=== PATIENT | female | born 1985 ===

== ENCOUNTER 2017-08-01 13:02 | Emergency (ER) | payer OTHER ==
[2017-08-01 13:08] VITALS: PULSE 77; TEMP 99.4
[2017-08-01 13:16] VITALS: RESP 18; O2SAT 98
--- NOTE | 2017-08-01 13:20 | ED PDOC ---
Arrival/HPI - General Chief Complaint: Eye Problem Time Seen by Provider: 08/01/17 13:08 Historian: Patient - History of Present Illness Narrative History of Present Illness (Text): 08/01/17 13:28 32 y/o female, no significant pmh, nkda, c/o lt. eye swelling and painful lump started this morning with no fall or trauma. Pt. has no headache, no nausea or vomiting, no dizziness, no rash, no palpitation, no rash, no change in vision, no painful movement of the left eye, no other medical or psychological complaints. Past Medical History - Provider Review Nursing Documentation Reviewed: Yes - Psychiatric Hx Psychophysiologic Disorder: No Hx Substance Use: No Family/Social History - Physician Review Nursing Documentation Reviewed: Yes Family/Social History: Unknown Family HX Smoking Status: Smoker Currrent Status Unknown Hx Alcohol Use: Yes Frequency of alcohol use: Socially Hx Substance Use: No Allergies/Home Meds Allergies/Adverse Reactions: Allergies aspirin Allergy (Verified 08/01/17 13:03) SWELLING Review of Systems - Review of Systems Constitutional: absent: Fatigue, Fevers Eyes: Other (lt. eye lid swelling). absent: Vision Changes ENT: absent: Hearing Changes Respiratory: absent: SOB, Cough Cardiovascular: absent: Chest Pain Gastrointestinal: absent: Abdominal Pain, Nausea, Vomiting Skin: Rash. absent: Pruritis, Skin Lesions, Laceration, Abscess, Ulcer, Cellulitis Neurological: absent: Headache, Dizziness, Focal Weakness Psychiatric: absent: Anxiety, Depression Physical Exam Vital Signs Reviewed: Yes Vital Signs Temp Pulse Resp BP Pulse Ox 08/01/17 13:16 99.4 F 77 18 165/104 H 98 08/01/17 13:04 99.4 F 77 80 H 165/104 H 97 Temperature: Afebrile Blood Pressure: Normal Pulse: Regular Respiratory Rate: Normal Appearance: Positive for: Well-Appearing, Non-Toxic, Comfortable Pain Distress: Mild Mental Status: Positive for: Alert and Oriented X 3 - Systems Exam Head: Present: Atraumatic, Normocephalic Pupils: Present: PERRL Extroacular Muscles: Present: EOMI, Other (Lt. upper eyelid visible stye noted with mild swelling on the lt. upper eyelid. ) Conjunctiva: Present: Normal Ears: Present: NORMAL TM, Normal Canal. No: Erythema Mouth: Present: Moist Mucous Membranes Neck: Present: Normal Range of Motion Respiratory/Chest: Present: Clear to Auscultation, Good Air Exchange. No: Respiratory Distress, Accessory Muscle Use Cardiovascular: Present: Regular Rate and Rhythm, Normal S1, S2. No: Murmurs Abdomen: Present: Normal Bowel Sounds. No: Tenderness, Distention, Peritoneal Signs Back: Present: Normal Inspection Upper Extremity: Present: Normal Inspection. No: Cyanosis, Edema Lower Extremity: Present: Normal Inspection, NORMAL PULSES, Neurovascularly Intact. No: Edema, CALF TENDERNESS Neurological: Present: GCS=15, Speech Normal, Motor Func Grossly Intact, Gait Normal, Memory Normal Skin: Present: Warm, Dry, Normal Color. No: Rashes Psychiatric: Present: Alert, Oriented x 3, Normal Insight, Normal Concentration Medical Decision Making ED Course and Treatment: 08/01/17 13:30 -Discharge home with erythromycin opthalmic, augmentin, zyrtec, cold compression , follow up with your own pmd and opthalmologist within2 days, return to the ER for any new or worsening signs or symptoms. 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 Disposition/Present on Arrival - Present on Arrival Any Indicators Present on Arrival: No History of DVT/PE: No History of Uncontrolled Diabetes: No Urinary Catheter: No History of Decub. Ulcer: No History Surgical Site Infection Following: None - Disposition Have Diagnosis and Disposition been Completed?: Yes Diagnosis: Preseptal cellulitis, Stye Disposition: HOME/ ROUTINE Disposition Time: 13:31 Patient Plan: Discharge Condition: GOOD Additional Instructions: -Discharge home with erythromycin opthalmic, augmentin, zyrtec, cold compression , follow up with your own pmd and opthalmologist within2 days, return to the ER for any new or worsening signs or symptoms. Prescriptions: Amoxicillin/Clavulanate [Augmentin 875 MG-125 MG] 1 tab PO BID #20 tab Cetirizine HCl [Zyrtec] 10 mg PO DAILY #10 tab.rapdis Erythromycin 0.5% [Ilytocin] 5 mg OS QID #5 g Referrals: DWIGHT DODSON [Primary Care Provider] - Follow up with primary Blayne Mcmahon [Staff Provider] - Follow up with primary Forms: WORK NOTE
[2017-08-01 13:38] VITALS: BP 152/93
== END 2017-08-01 14:03 | disposition home or self-care (01) ==
LOC: MERGE 13:02 → ED 13:02
DX: L03.213 Periorbital cellulitis (principal); H00.014 Hordeolum externum left upper eyelid